=== PATIENT | female | born 1985 | race Caucasian/White ===

== ENCOUNTER 2016-07-30 06:43 | Inpatient (IN) | payer MEDICAID ==
[~2016-07-30] VITALS: Ht 165.1 cm; Wt 91.0 kg
--- NOTE | ~2016-07-30 | OR ---
PATIENT'S NAME: TRENT POP [facility] AGE: 31 Y [address] ROOM: [place] [address] LOCATION: GOBS ADMIT DATE: 07/30/2016 OR/Procedure Report DISCHARGE DATE: FAMILY PHYSICIAN: PHYSICIAN, UNKNOWN ATTENDING PHYSICIAN: SOLE NICOLE SURGEON: Sole Nicole MD CAPACITY PLANNING ENGINEER: Qasim John M.D. Dr. John's assistance was required for safe delivery of the fetus as well as adequate visualization of the tissues. DATE OF PROCEDURE: 07/30/2016 PREDELIVERY DIAGNOSES: 1. Intrauterine at 39 weeks, 3 days. 2. Arrest of descent. 3. Unsuccessful attempt at operative vaginal delivery with vacuum. 4. Depression. 5. Obesity. 6. Tobacco use. POSTDELIVERY DIAGNOSES: 1. Intrauterine at 39 weeks, 3 days. 2. Arrest of descent. 3. Unsuccessful attempt at operative vaginal delivery with vacuum. 4. Postoperative hemorrhage. 5. Depression. 6. Obesity. 7. Tobacco use. ESTIMATED BLOOD LOSS: 1 L. ANTIBIOTICS: 2 g Ancef. The patient did receive penicillin during the course of her labor due to GBS positive status. FINDINGS: Viable female infant, weighing 7 pounds, 2 ounces with score of 8 and 9. Intact placenta with 3-vessel cord. Normal-appearing uterus, bilateral fallopian tubes and ovaries. SPECIMENS: Cord blood and placenta not sent for Pathology. COMPLICATIONS: None. DISPOSITION: The patient is stable and sent to PACU. INDICATIONS FOR THE PROCEDURE: The patient is a 31-year-old, G6, P3-0-2-3 who presented at term for an elective induction of labor. Cervix was PATIENT'S NAME: TRENT POP [facility] AGE: 31 Y [address] ROOM: [place] [id number] LOCATION: [facility] ADMIT DATE: 07/30/2016 OR/Procedure Report DISCHARGE DATE: FAMILY PHYSICIAN: PHYSICIAN, UNKNOWN ATTENDING PHYSICIAN: SOLE NICOLE approximately 2 cm dilated upon presentation and IV Pitocin was started. had been complicated by history of depression and tobacco abuse as well as obesity. The patient did have a history of an operative delivery with her first delivery and reported no other complications with her subsequent 2 deliveries. Estimated weight was approximately 3200 g. She progressed normally through labor and began expulsive efforts. Over the course of an hour, the patient was not noted to make any further descent past +2 station and fetus was felt to be in the LOP presentation. Discussion was had with the patient regarding plan to attempt an operative vaginal delivery due to arrest of descent. The patient was aware of the risks to include, but not limited to, risk of further lacerations for her including 3rd and 4th degree lacerations, risk of shoulder dystocia, risk of injury to the scalp with possible bleeding, and desired to proceed. Vacuum suction was tested. Vacuum cup was then applied to point of maximal flexion on scalp and suction increased to the green zone. An attempt was made over the course of approximately 5-6 contractions with 2 pop-offs noted with minimal descent occurring. bladder had been drained prior to attempt and again fetus was felt to be in the LOP presentation and estimated weight was 3200 g. She was felt to have an adequate pelvis. Discussion was then held with the patient that since there was minimal descent noted with the vacuum that it was felt to be safest to proceed with a section. The risks, benefits, and alternatives of the procedure were reviewed with the patient. She was aware of the risks of the procedure to include, but not limited to, risk of bleeding, risk of infection, risk of injury to bowel and bladder, risk of thromboembolism, and risks associated with anesthesia. She is aware of the risks and desired to proceed. The patient already had epidural anesthesia in place and Anesthesia was notified. DESCRIPTION OF THE PROCEDURE: The patient was taken back to the operating room. Barton catheter had been previously placed. Anesthesia was tested and was felt to be appropriately adequate for section. She was placed in dorsal supine position with a leftward tilt of the hips. She was then prepped and draped in a sterile fashion. Incision was then made in the skin and carried down to the underlying fascia, which was nicked on both sides of the midline. Fascial incision was extended using Huitron scissors. Betzaida clamps were used to tent up the fascia superiorly and then inferiorly and the fascia was dissected from the underlying rectus muscles. The peritoneum was then entered bluntly and spread. Bladder blade was placed. A bladder flap was created using Metzenbaum scissors. A low-transverse hysterotomy incision was then made and spread in a cephalocaudal direction. The surgeon's hand was placed into the uterus and head was noted to be low in a LOP presentation. The head was brought out of the pelvis and delivered through the incision. With the assistance of fundal pressure, the shoulders and body delivered. A loose body cord x1 was noted. Infant was noted to be a vigorous female. Cord was doubly clamped and cut and the was handed off the table to the waiting team. An attempt was made to obtain cord pH, but was unsuccessful. Cord blood was obtained. IV Pitocin PATIENT'S NAME: TRENT POP [facility] AGE: 31 Y [address] ROOM: [address] [address] LOCATION: [facility] ADMIT DATE: 07/30/2016 OR/Procedure Report DISCHARGE DATE: FAMILY PHYSICIAN: PHYSICIAN, UNKNOWN ATTENDING PHYSICIAN: DARRELL NICOLENA was started per protocol. Gentle traction was applied on the placenta and it was expressed intact. The uterus was then exteriorized and cleared of all remaining clots and debris. At that time, an extension was noted that the spread down the patient's right-side down into the cervix. Galan clamps were placed to aid in hemostasis and identifying the angles of the extension. Extensive bleeding was noted from that area. A suture of 0 Vicryl was used in a running locked fashion to make the area hemostatic and carried through to the remainder of the hysterotomy incision. Another layer of closure was performed with 0 Vicryl. The extension was inspected and was noted continue to have some bleeding; so, multiple [id number] sutures were placed in that area. The area around the extension was palpated and no palpable ureters were noted and it was felt to be safely away from the ureter on the patient's right side. The incision did appear relatively hemostatic and the uterus was replaced into the abdomen, bladder blade was replaced, and incision was again inspected and there was continued bleeding noted from that right-side of the extension. Another layer of 0 Vicryl was placed in that area. Small areas of serosal bleeding were cauterized with the Bovie cautery. Incision was noted to have some slight oozing, but it appeared significantly more hemostatic and decision was made to place Surgicel over the incision at that time. The patient was doing well from a vital standpoint, estimated blood loss was approximately 1 L, and she was not noted to have any bright red blood in her Barton catheter. Bilateral pericolic gutters were then cleared of clots and uterine incision was again inspected and appeared to be hemostatic with Surgicel in place. The fascia was then closed in a running nonlocked fashion using a looped PDS suture. Subcutaneous tissue was irrigated and any areas of bleeding were cauterized with Bovie cautery. The skin was then closed with 4- 0 Vicryl on a Jeff needle. Benzoin and Steri-Strips were then applied to the incision. The patient was stable and sent to PACU. Plan was for the patient to have a hemoglobin 4 hours after the procedure and a repeat in the a.m. The patient was aware that she had some increased bleeding due to the procedure and intraoperative findings were discussed with her. MD AUGUST BERNARDO/modl /[id number] d: 07/31/169 t: 07/31/16 0824, OPERATIVE SUMMARY
[2016-07-30 07:27] LABS: BASOPHIL # 0.1 K/uL (0.0-0.2); BASOPHIL % 0.6 %; EOSINOPHIL # 0.3 K/uL (0.0-0.5); EOSINOPHIL % 2.4 %; HEMATOCRIT 33.4 % (33.0-46.0); HEMOGLOBIN 11.6 g/dL (11.0-15.0); IMMATURE GRANULOCYTE # 0.1 K/uL (0.0-0.3); IMMATURE GRANULOCYTE % 0.8 %; LYMPHOCYTE # 2.2 K/uL (0.8-4.0); LYMPHOCYTE % 17.1 %; MCH 31.4 pg (27.0-34.0); MCHC 34.7 gm/dL (32.0-36.5); MCV 90.5 fl (83.0-98.0); MONOCYTE # 1.1 K/uL (0.0-1.0); MONOCYTE % 8.3 %; MPV 9.8 fl (9.4-12.4); NEUTROPHIL % 70.8 %; NRBC % 0 /100WBC (0-0.00); PLATELET COUNT 305 K/uL (150-450); RBC 3.69 M/uL (3.50-5.50); RDW-CV 12.4 % (11.9-14.6); WBC 12.7 K/uL (4.0-11.0)
[2016-07-30] MEDS ORDERED: PRENATAL 1+1)(P1 TAB PO (07:43)
[2016-07-30] MEDS ORDERED: ACETAMINOPHEN325 MG PO (07:43)
[2016-07-30] MEDS ORDERED: PROZAC10 MG PO (07:43)
--- NOTE | 2016-07-30 13:33 | NUR ---
Met with patient and her friend Trung at bedside today. Introduced myself and explained my role as the gericare aide. Instructed Jillian to contact Medicaid and notify them of baby's . I provided her with a list of community resources here in [place]. I also gave her the voucher to the [facility] as she was saying she still needed baby bottles. Discussed and provided her with reading material on Post Depression. She is currently being treated for depression and she states she is aware she should watch for a change or increase in her symptoms. Instructed her to contact her doctor if her symptoms change or increase. FOB is not involved and she did not disclose any information on FOB. She lives next door to her best friend Blanca. Trung and her are good supports for Jillian. She denies having any needs or concerns. Has all necessary items for baby. CM will follow while here.
[2016-07-30 20:26] LABS: HEMATOCRIT 28.6 % (33.0-46.0); HEMOGLOBIN 9.7 g/dL (11.0-15.0)
--- NOTE | 2016-07-31 05:01 | NUR ---
vss, fundus firm, at umbilicus, small flow. pt up independently in room. voids w/o difficulty. washed hair in sink last night but would like to shower this am. 2 percocet and last dose of toradol given at 0600.
[2016-07-31 05:36] LABS: BASOPHIL # 0.1 K/uL (0.0-0.2); BASOPHIL % 0.2 %; EOSINOPHIL # 0.1 K/uL (0.0-0.5); EOSINOPHIL % 0.5 %; HEMATOCRIT 25.7 % (33.0-46.0); HEMOGLOBIN 8.7 g/dL (11.0-15.0); IMMATURE GRANULOCYTE # 0.2 K/uL (0.0-0.3); IMMATURE GRANULOCYTE % 0.7 %; LYMPHOCYTE # 2.2 K/uL (0.8-4.0); LYMPHOCYTE % 10.8 %; MCH 31.5 pg (27.0-34.0); MCHC 33.9 gm/dL (32.0-36.5); MCV 93.1 fl (83.0-98.0); MONOCYTE # 1.7 K/uL (0.0-1.0); MONOCYTE % 8.1 %; MPV 9.8 fl (9.4-12.4); NEUTROPHIL # (ANC) 16.4 K/uL (1.8-7.8); NEUTROPHIL % 79.7 %; NRBC % 0 /100WBC (0-0.00); PLATELET COUNT 285 K/uL (150-450); RDW-CV 12.6 % (11.9-14.6)
[2016-07-31 05:39] LABS: RBC 2.76 M/uL (3.50-5.50); WBC 20.6 K/uL (4.0-11.0)
[2016-08-01] MEDS ORDERED: FEOSOL325 MG PO (08:52)
[2016-08-01] MEDS ORDERED: SURFAK240 MG PO (08:52)
[2016-08-01] MEDS ORDERED: APNO TOP (08:53)
[2016-08-01] MEDS ORDERED: MOTRIN800 MG PO (08:53)
[2016-08-01] MEDS ORDERED: LANSINOH7 GM TOP (08:53)
[2016-08-01] MEDS ORDERED: PERCOCET 5-3251 EACH PO (08:55)
[2016-08-01] MEDS ORDERED: NICODERM / HABIT7 MG TRANS (08:56)
--- NOTE | 2016-08-01 16:56 | NUR ---
Patient in poor spirits after told Dr Mast declined dismissal orders on her baby girl. States "nobody understands my situation> someone else watching my kids. I just want to get home to my other kids". I asked the situation w/ her other kids, their safety? etc. Patient states that wasn't the issue but did not elaborate.~Is tearful & doesn't want to talk to me anymore. ~~I offered to have charge nurse come in & visit or asked if she wanted to talk again directly to Dr Mast, but patient says "No! I don't want to talk to anyone". I said I would give her some privacy now but to call me if I could anything to help.
--- NOTE | 2016-08-01 17:05 | NUR ---
Last VS: T:98.2 P:79 R: 20 BP: 111/61 Pain ratin-8 Last pain med: Percocet(2) Medicated at: 1626 Effective: Partial relief R Lung sounds: , L Lung sounds: Fundus: FIRM Lochia: SMALL Breasts: FILLING Nipples: USES NIPPLE SHIELD Incision: LO TRANSV.C/S Incision appearance: OOZES SM-MOD AMT IN CENTER INTERMITTENTLY. PINK (clayton)PAD IN PLACE TO ABSORB DRNG. Incision closure: SUTURE/STERI Bowel sounds: Passing flatus: Y Voiding well: Y Significant event: *.UP AD KYM, WALKS IN ROOM, WALKED X3 LAPS IN [place] @1300. HAS C/O ALL DAY LONG OF BEING IN SEVERE PAIN #6-8 (backpain, inc.pain, ribcage pain, rattly cough pain, etc) ICE PACK TO INCISION. HEAT PAD TO BACK. LAST MOTRIN @1516. WOULD LIKE PAIN MED GIVEN ON REG.SCHEDULE. DR CASTANEDA GAVE PT OPTION TO GO HOME THIS EVENING, BUT WHEN PT HAD US CALL DR NORRIS FOR DISMISSAL ORDER ON BABY (@1630) DR NORRIS DECLINED TO DISMISS BABY TODAY. PATIENT CRIED & UPSET WHEN WE EXPLAINED DR NORRIS'S REASON. *SEE PT NOTES.
--- NOTE | 2016-08-02 05:40 | NUR ---
VSS, fundus firm, midline, small flow, incision open to air with steri strips, small amount of red drainage from incision, Perc last at 0100, Motrin last at 2316
== END 2016-08-02 13:55 | disposition disaster alternative care site (69) | DRG 765 ==
LOC: GOBS 06:43 → GOBM 06:43 → GOBS 13:20
PROVIDERS: ADMIT Obstetrics & Gynecology
DX: O62.1 Secondary uterine inertia (principal); O72.1 Other immediate postpartum hemorrhage; D62 Acute posthemorrhagic anemia; Z3A.39 39 weeks gestation of pregnancy; Z37.0 Single live birth; F32.9 Major depressive disorder, single episode, unspecified; O99.334 Smoking (tobacco) complicating childbirth
CPT/HCPCS: J0690; J1885; J2270; J2540; J2590; J3010; J7120